=== PATIENT | female | born 1980 | race Caucasian/White ===

== ENCOUNTER 2019-01-12 14:56 | Observation (INO) ==
[2019-01-12] MEDS ORDERED: Ringers Solution, Lactated 1,000 ML ONE (16:19)
[2019-01-12] MEDS ORDERED: Lidocaine -MPF 2% 5 ML VIAL ONE (16:20)
--- NOTE | 2019-01-12 17:00 | Anesthesia Evaluation PreOp ---
Date of Encounter: 01/12/19 Time of Encounter: 16:30 - Past History Planned Operation: Epidural Blood Patch Cardiac History: Denies any Significant Hx Pulmonary History: Denies Any Significant HX BLOCKER METAL BASE History: Other (Migraines) Other Medical History: Denies Any Significant HX : No (s/p 4 days ago) Alcohol Use: none Drug use: none Medications and Allergies Vits #90/Iron Fum/FA [ Formula Tablet] 01/08/19 [History] Docusate Sodium [Colace] 100 mg PO BID #60 capsule 01/10/19 [Rx] Ferrous Sulfate 325 mg PO BID #60 tablet 01/10/19 [Rx] Ibuprofen [Motrin] 600 mg PO Q6HR PRN #60 tab 01/10/19 [Rx] OxyCODONE/APAP 5/325 [Percocet 5/325 MG] 1 each PO Q6HR PRN 7 Days #28 tablet 01/10/19 [Rx] Allergy/AdvReac Type Severity Reaction Status Date / Time codeine Allergy Hives Verified 01/08/19 05:40 - Meds/Allergy Pre-op Review Medications Reviewed: Yes Allergies Reviewed: Yes Beta Blockers on Current Med List: No Anesthesia Results - Labs Laboratory Tests 10/22/17 01/08/19 01/09/19 19:20 15:09 18:19 Hgb 7.7 L Hct 24.7 L Plt Count 285 Sodium 137 Potassium 4.0 BUN 5 L Creatinine 0.54 L Anesthesia Exam O2 Sat Weight 93.5 kg O2 Sat by Pulse Oximetry 97 Vital Signs Temp Pulse Resp BP Pulse Ox 98.0 F 65 16 136/83 97 01/12/19 15:45 01/12/19 15:45 01/12/19 15:45 01/12/19 15:45 01/12/19 15:45 Weight: 206 lbs NPO (# of Hours): MN - HEENT Pupil (Motor): Pupils equal, EOMI Mallampati: II Teeth: Normal Oral Opening: Greater than 3 - BLOCKER METAL BASE LOC: Oriented BLOCKER METAL BASE Motor: Normal RUE, Normal LUE, Normal RLE, Normal LLE, Normal Face BLOCKER METAL BASE Sensory: Normal: RUE, LUE, RLE, LLE, Face - Cardiac Rhythm: Regular Murmur: None JVD: No Carotid Bruit: No - Pulmonary Breath Sounds: bilateral Clear Respiratory Effort: Symmetrical Anesthesia Assess/Plan ASA Score: 2 Level of consciousness: Cooperative, Oriented Autologous Blood: No Monitoring Plan: Standard Monitors Recovery Plan: Other (Discussed Epidural Blood Patch)
--- NOTE | 2019-01-12 17:11 | Anesthesia Procedures ---
Date of Encounter: 01/12/19 Time of Encounter: 16:45 Procedures: Anesthesia - Epidural Blood Patch Patient ID/Chart reviewed: Yes Patient examined: Yes Puncture type: Spinal (22G sprotte needle used for ) Performed at: [facility] Symptoms consistent with Postdural Puncture Headache (PDPH): Yes Patient agrees to Blood Patch: Yes Any signs of infection or bacteremia: No Patient on blood thinners: No Consent Obtained: Yes Site Prep: Aseptic Technique, Sterile prep and drape, 0.5% Chlorhexidine/Alcohol Patient position: upright Local Anesthetic Used: Lidocaine 1% Amount of anesthesia used (mls): 3 Touhy Needle Gauge: 18 Site of blood draw: left: Arm Interspace Used: L4-L5 Autologous blood injected (cc): 20 Loss of Resistance (CATALINA): Yes Blood: No CSF: No Paresthesia: No Procedure: successful on 1st attempt; patient tolerated procedure well; Please see [facility] electronic records for VS entry Post Procedure: patient reports noticeable improvement in headache symptoms in upright position. Patient positioned to supine for next 2 hours.
[2019-01-12 19:02] VITALS: BP 161/84
--- NOTE | 2019-01-12 19:19 | Anesthesia Evaluation Post Op ---
Date of Encounter: 01/12/19 Time of Encounter: 19:16 - Vital Signs Vital Signs: Vital Signs/O2 Sat, Most Current Temp Pulse Resp BP Pulse Ox 97.6 F 70 16 161/84 96 01/12/19 18:45 01/12/19 18:45 01/12/19 18:45 01/12/19 18:45 01/12/19 18:45 - Lungs Lungs: Clear Ascult./Percussion - Airway Airway: Non-obstructed - Cardiovascular Regular Rate - Mental Status Mental Status: Alert & Oriented, Answers Appropriately - Pain Pain Scale: 0 Pain Scale used: Numeric (1 - 10) - Nausea Vomiting Nausea Vomiting: Not Present - Hydration Hydration: NPO, Able to void Notes: Pt reports complete improvement in PDPH symptoms. Instructed patient that if symptoms were to occur that could be relieved by OTC pain relievers, bed rest, and caffeine, that she should notify Dr. Mijares. 01/12/19 19:17 - Discharge PostOp Status: Discharge Patient to home
== END 2019-01-12 20:02 | disposition home or self-care (01) ==
LOC: 1NENUOBS
PROVIDERS: ADMIT Obstetrics & Gynecology; ATTEND Student in an Organized Health Care Education/Training Program

== ENCOUNTER → 2022-02-22 16:42 | Observation (INO) ==
[2022-02-22 15:22] LABS: Basophils # 0.1 K/mcL (0.0-0.2); Basophils % 0.5 %; Eosinophils # 0.1 K/mcL (0.0-0.6); Hematocrit 31.6 % (35.3-44.9); Hemoglobin 10.1 g/dL (11.5-15.4); Lymphocytes # 1.5 K/mcL (0.6-4.6); Mean Corpuscular Hemoglobin 28.9 pg (28.0-33.3); Mean Corpuscular Volume 90.5 fL (83.0-100.0); Monocytes # 0.7 K/mcL (0.0-1.3); Monocytes % 7.7 %; Neutrophils # 6.8 K/mcL (1.6-8.9); Platelet Count 200 K/mcL (140-400); Red Blood Count 3.49 M/mcL (3.82-4.97); Red Cell Distribution Width 17.4 % (11.5-14.5); Segmented Neutrophils % 71.8 %; White Blood Count 9.4 K/mcL (4.3-11.1)
[2022-02-22 15:41] LABS: Protein/Creatinine Ratio,Urine 0.38 mg/mg (0.00-0.20)
[2022-02-22 15:46] LABS: Alanine Aminotransferase 4 Units/L (7-52); Aspartate Amino Transferase 10 Units/L (13-39); BUN/Creatinine Ratio 10 (6-26); Blood Urea Nitrogen 6 mg/dL (6-20); Lactate Dehydrogenase 119 Units/L (140-271); Uric Acid 4.1 mg/dL (2.3-7.6); eGFR For African Americans > 60 (> 60); eGFR For Non-African Americans > 60 (> 60)
== END | disposition home or self-care (01) ==
LOC: 1NENULAB
PROVIDERS: ADMIT Student in an Organized Health Care Education/Training Program; ATTEND Student in an Organized Health Care Education/Training Program

== ENCOUNTER 2022-03-02 10:00 | Inpatient (IN) ==
[2022-03-02] MEDS ORDERED: Metoclopramide 10 MG/2 ML VIAL IVP ONE (13:21)
[2022-03-02] MEDS ORDERED: Famotidine 20 MG/2 ML VIAL IVP ONE (13:21)
[2022-03-02] MEDS ORDERED: Ringers Solution, Lactated 1,000 ML IVC ONE (13:21)
[2022-03-02] MEDS ORDERED: OXYTOCIN/RINGERS LACTATE 10 UNIT/166.6 ML BAG IVC ONE (13:21)
[2022-03-02] MEDS ORDERED: CeFAZolin 2,000 MG/120 ML BAG IVPB ONE (13:21)
[2022-03-02] MEDS ORDERED: Oxytocin 30 UNIT/503 ML BAG IVC SCH ×2 (13:30→19:44)
[2022-03-02] MEDS ORDERED: Ringers Solution, Lactated 1,000 ML IVC SCH (13:30)
[2022-03-02 14:25] LABS: Basophils % 0.4 %; Eosinophils % 0.4 %; Hematocrit 32.8 % (35.3-44.9); Hemoglobin 10.5 g/dL (11.5-15.4); Lymphocytes # 1.4 K/mcL (0.6-4.6); Lymphocytes % 13.8 %; Mean Corpuscular Hemoglobin 28.5 pg (28.0-33.3); Mean Corpuscular Volume 88.9 fL (83.0-100.0); Mean Platelet Volume 10.2 fL (9.4-12.4); Monocytes # 0.6 K/mcL (0.0-1.3); Monocytes % 6.4 %; Neutrophils # 7.6 K/mcL (1.6-8.9); Platelet Count 216 K/mcL (140-400); Red Blood Count 3.69 M/mcL (3.82-4.97); Red Cell Distribution Width 16.6 % (11.5-14.5); White Blood Count 9.9 K/mcL (4.3-11.1)
[2022-03-02] MEDS ORDERED: *HR* HYDROmorphone PF 0.5 MG/0.5 ML SYRINGE IVP PRN (14:38)
[2022-03-02] MEDS ORDERED: Promethazine 6.25 MG in Water for inj. (sterile) 20 ML IVPB PRN (14:38)
[2022-03-02] MEDS ORDERED: Acetaminophen IV 1,000 MG/100 ML BAG IVPB PRN (14:38)
[2022-03-02] MEDS ORDERED: *HR* Meperidine 25 MG/ML SYRINGE IVP PRN (14:38)
[2022-03-02] MEDS ORDERED: *HR* Labetalol 20 MG/4 ML SYRINGE IVP PRN (14:38)
[2022-03-02 14:47] LABS: Amphetamine Screen,Urine Negative ng/mL (Cutoff=1000); Barbiturate Screen,Urine Negative ng/mL (Cutoff=200); Benzodiazepines Screen,Urine Negative ng/mL (Cutoff=200); Cannabinoid Screen,Urine Negative ng/mL (Cutoff = 50); Cocaine Screen,Urine Negative ng/mL (Cutoff= 300); Opiate Screen,Urine Negative ng/mL (Cutoff=300); Phencyclidine Screen,Urine Negative ng/mL (Cutoff=25)
[2022-03-02] MEDS ORDERED: Ringers Solution, Lactated 1,000 ML ONE (15:22)
[2022-03-02] MEDS ORDERED: Acetaminophen IV 1,000 MG/100 ML BAG IVPB ONE (16:48)
[2022-03-02] MEDS ORDERED: Ondansetron 4 MG/2 ML VIAL IVP PRN (19:44)
[2022-03-02] MEDS ORDERED: Metoclopramide 10 MG/2 ML VIAL IVP PRN (19:44)
[2022-03-02] MEDS: Ibuprofen 600 MG TABLET PO SCH (20:08)
[2022-03-03] MEDS: Acetaminophen 325 MG TABLET PO SCH ×4 (00:37→19:46)
[2022-03-03] MEDS: CeFAZolin 2,000 MG/120 ML BAG IVPB SCH ×3 (00:38→16:09)
[2022-03-03] MEDS: *HR* OxyCODONE Immed Rel 5 MG TABLET PO PRN ×4 (05:54→19:45)
[2022-03-03 06:17] LABS: Basophils # 0.1 K/mcL (0.0-0.2); Basophils % 0.5 %; Eosinophils % 0.2 %; Hematocrit 28.5 % (35.3-44.9); Hemoglobin 9.3 g/dL (11.5-15.4); Immature Granulocytes % 1.1 % (0-4); Lymphocytes # 2.1 K/mcL (0.6-4.6); Lymphocytes % 15.9 %; Mean Corpuscular HGB Conc 32.6 g/dL (31.6-35.5); Mean Corpuscular Volume 88.8 fL (83.0-100.0); Mean Platelet Volume 10.3 fL (9.4-12.4); Monocytes % 7.4 %; Neutrophils # 9.9 K/mcL (1.6-8.9); Platelet Count 198 K/mcL (140-400); Red Blood Count 3.21 M/mcL (3.82-4.97); Red Cell Distribution Width 16.4 % (11.5-14.5); Segmented Neutrophils % 74.9 %; White Blood Count 13.2 K/mcL (4.3-11.1)
[2022-03-03] MEDS: *HR* Enoxaparin 60 MG/0.6 ML SYRINGE SQ SCH ×2 (06:47→19:46)
[2022-03-03] MEDS: Ibuprofen 600 MG TABLET PO SCH ×3 (06:47→14:07)
[2022-03-03] MEDS: Prenatal Vit/FA 1 EACH TABLET PO SCH (10:05)
[2022-03-03] MEDS: Simethicone 80 MG TAB.CHEW PO PRN (21:27)
[2022-03-04] MEDS: Ibuprofen 600 MG TABLET PO SCH ×2 (00:04→10:20)
[2022-03-04] MEDS: *HR* OxyCODONE Immed Rel 5 MG TABLET PO PRN ×3 (00:04→10:20)
[2022-03-04] MEDS: Acetaminophen 325 MG TABLET PO SCH ×2 (03:21→06:00)
[2022-03-04] MEDS: *HR* Enoxaparin 60 MG/0.6 ML SYRINGE SQ SCH (06:01)
[2022-03-04] MEDS: Simethicone 80 MG TAB.CHEW PO PRN (06:01)
[2022-03-04 07:23] VITALS: BP 111/68; PULSE 89; TEMP 97.9; O2SAT 98
[2022-03-04] MEDS: Prenatal Vit/FA 1 EACH TABLET PO SCH (10:20)
== END 2022-03-04 12:05 | disposition home or self-care (01) | DRG 785 ==
LOC: 1NENULAB 12:54 → 1NENUOBS 19:55
PROVIDERS: ADMIT Student in an Organized Health Care Education/Training Program; ATTEND Student in an Organized Health Care Education/Training Program